=== PATIENT | female | born 1965 | race Caucasian/White ===

== ENCOUNTER 2018-05-04 23:28 | Inpatient (IN) | payer MEDICAID ==
[2018-05-05 03:04] LABS: WHITE BLOOD COUNT 6.3 10^3/ul (4.8-10.8)
[2018-05-05 03:04] LABS: ADD MAN DIFF? NO; BASOPHILS % 0.3 % (0.0-2.0); EOSINOPHILS # 0.1 10^3/ul (0.0-0.5); EOSINOPHILS % 0.9 % (0.0-7.0); HEMATOCRIT 40.2 % (37.0-47.0); LYMPHOCYTES # 1.7 10^3/ul (0.8-2.9); LYMPHOCYTES % 26.9 % (15.0-51.0); MEAN CORPUSCULAR HEMOGLOBIN 31.4 pg (29.0-33.0); MEAN CORPUSCULAR HGB CONC 32.3 g/dl (32.0-37.0); MEAN CORPUSCULAR VOLUME 97.1 fl (82.0-101.0); MEAN PLATELET VOLUME 8.9 fl (7.4-10.4); MONOCYTE # 0.4 10^3/ul (0.3-0.9); MONOCYTES % 6.5 % (0.0-11.0); NEUTROPHIL # 4.1 10^3/ul (1.6-7.5); NEUTROPHILS % 65.2 % (39.0-77.0); PLATELET COUNT 380 10^3/UL (140-415); RED BLOOD COUNT 4.14 10^6/ul (4.20-5.40); RED CELL DISTRIBUTION WIDTH 13.2 % (11.5-14.5)
[2018-05-05 03:09] LABS: ADD UMIC YES; UR ASCORBIC ACID NEGATIVE (NEGATIVE); UR BILIRUBIN (Dip) NEGATIVE (NEGATIVE); UR BLOOD (Dip) 1+ mg/dL (NEGATIVE); UR CLARITY CLEAR (CLEAR); UR COLOR YELLOW (YELLOW); UR GLUCOSE (Dip) NEGATIVE (NEGATIVE); UR KETONES (Dip) NEGATIVE (NEGATIVE); UR LEUKOCYTE ESTERASE (Dip) NEGATIVE Leu/ul (NEGATIVE); UR NITRITE (Dip) NEGATIVE (NEGATIVE); UR RBC 7 /HPF (0-5); UR SPECIFIC GRAVITY (Dip) 1.018 (1.003-1.030); UR TOTAL PROTEIN (Dip) NEGATIVE (NEGATIVE); UR UROBILINOGEN (Dip) 1+ mg/dL (NEGATIVE); UR WBC 0 /HPF (0-5)
[2018-05-05] MEDS: morphine 4 MG/ML VIAL IV (03:17)
[2018-05-05] MEDS: ONDANSETRON 4 MG INJ IV (03:17)
[2018-05-05 03:30] LABS: ALANINE AMINOTRANSFERASE 865 IU/L (13-69); ALBUMIN 4.7 g/dl (3.3-4.9); ALBUMIN/GLOBULIN RATIO 1.09; ALKALINE PHOSPHATASE 228 IU/L (42-121); ANION GAP 11 (5-13); BILIRUBIN,INDIRECT 1.3 mg/dl (0-1.1); BILIRUBIN,TOTAL 1.5 mg/dl (0.2-1.3); BLOOD UREA NITROGEN 16 mg/dl (7-20); CALCIUM 9.8 mg/dl (8.4-10.2); CARBON DIOXIDE 29 mmol/L (21-31); CHLORIDE 104 mmol/L (97-110); Estimated GFR > 60 mL/min (>60); GLUCOSE 112 mg/dl (70-220); LIPASE 181 U/L (23-300); POTASSIUM 3.7 mmol/L (3.5-5.1); SODIUM 144 mmol/L (135-144)
[2018-05-05 03:58] LABS: ASPARTATE AMINO TRANSFERASE 858 IU/L (15-46)
[2018-05-05] MEDS ORDERED: ACETAMINOPHEN 325 MG TAB PO (05:30)
[2018-05-05] MEDS ORDERED: ONDANSETRON 4 MG INJ IV ×2 (05:30→07:30)
[2018-05-05] MEDS: PIPER-TAZO 3.375 GM IV (PMX) 100 ML IVPB (06:04)
[2018-05-05] MEDS ORDERED: NACL 0.9% 3 ML SYG IV (07:30)
[2018-05-05] MEDS: DEXTROSE 5%-0.45% NACL 1,000 ML IV ×2 (07:37→23:18)
[2018-05-05 08:42] LABS: HEPATITIS B SURFACE ANTIGEN NEGATIVE (NEGATIVE)
[2018-05-05 09:00] LABS: HEPATITIS C VIRAL ANTIBODY NEGATIVE (NEGATIVE)
[2018-05-05 09:00] LABS: HEPATITIS B SURFACE ANTIBODY NEGATIVE (NEGATIVE)
[2018-05-05] MEDS: FAMOTIDINE 20 MG INJ IV ×2 (09:26→23:16)
[2018-05-06] MEDS: DEXTROSE 5%-0.45% NACL 1,000 ML IV ×2 (03:12→09:13)
[2018-05-06 05:37] LABS: ADD MAN DIFF? NO
[2018-05-06 05:45] LABS: WHITE BLOOD COUNT 5.1 10^3/ul (4.8-10.8)
[2018-05-06 05:45] LABS: BASOPHILS % 0.6 % (0.0-2.0); EOSINOPHILS # 0.2 10^3/ul (0.0-0.5); EOSINOPHILS % 3.5 % (0.0-7.0); HEMATOCRIT 35.5 % (37.0-47.0); HEMOGLOBIN 11.7 g/dl (12.0-16.0); LYMPHOCYTES # 2.1 10^3/ul (0.8-2.9); LYMPHOCYTES % 40.5 % (15.0-51.0); MEAN CORPUSCULAR HEMOGLOBIN 32.1 pg (29.0-33.0); MEAN CORPUSCULAR VOLUME 97.3 fl (82.0-101.0); MEAN PLATELET VOLUME 9.2 fl (7.4-10.4); MONOCYTE # 0.5 10^3/ul (0.3-0.9); MONOCYTES % 9.9 % (0.0-11.0); NEUTROPHIL # 2.3 10^3/ul (1.6-7.5); NEUTROPHILS % 45.3 % (39.0-77.0); PLATELET COUNT 332 10^3/UL (140-415); RED BLOOD COUNT 3.65 10^6/ul (4.20-5.40); RED CELL DISTRIBUTION WIDTH 13.4 % (11.5-14.5)
[2018-05-06 06:03] LABS: ALANINE AMINOTRANSFERASE 529 IU/L (13-69); ALBUMIN 3.8 g/dl (3.3-4.9); ALBUMIN/GLOBULIN RATIO 1.02; ALKALINE PHOSPHATASE 176 IU/L (42-121); ANION GAP 9 (5-13); ASPARTATE AMINO TRANSFERASE 267 IU/L (15-46); BILIRUBIN,INDIRECT 1.2 mg/dl (0-1.1); BILIRUBIN,TOTAL 1.2 mg/dl (0.2-1.3); BLOOD UREA NITROGEN 14 mg/dl (7-20); CALCIUM 9.2 mg/dl (8.4-10.2); CARBON DIOXIDE 28 mmol/L (21-31); CHLORIDE 105 mmol/L (97-110); Estimated GFR > 60 mL/min (>60); GLUCOSE 109 mg/dl (70-220); POTASSIUM 3.4 mmol/L (3.5-5.1); SODIUM 142 mmol/L (135-144); TOTAL PROTEIN 7.5 g/dl (6.1-8.1)
[2018-05-06] MEDS: FAMOTIDINE 20 MG INJ IV ×2 (09:13→22:19)
[2018-05-06] MEDS: POTASSIUM CHLORIDE (SR) 20 MEQ TAB PO (17:25)
[2018-05-06] MEDS: PIPER-TAZO 3.375 GM IV (PMX) 100 ML IVPB ×2 (17:25→22:18)
[2018-05-06] MEDS: D5-NS + KCL 20 MEQ 1,000 ML IV (17:26)
[2018-05-07] MEDS: D5-NS + KCL 20 MEQ 1,000 ML IV ×3 (04:47→20:43)
[2018-05-07 05:14] LABS: ADD MAN DIFF? NO
[2018-05-07 05:15] LABS: BASOPHILS % 0.3 % (0.0-2.0); EOSINOPHILS # 0.1 10^3/ul (0.0-0.5); EOSINOPHILS % 2.2 % (0.0-7.0); HEMATOCRIT 34.8 % (37.0-47.0); HEMOGLOBIN 11.3 g/dl (12.0-16.0); LYMPHOCYTES # 2.1 10^3/ul (0.8-2.9); LYMPHOCYTES % 32.1 % (15.0-51.0); MEAN CORPUSCULAR HEMOGLOBIN 31.9 pg (29.0-33.0); MEAN CORPUSCULAR HGB CONC 32.5 g/dl (32.0-37.0); MEAN CORPUSCULAR VOLUME 98.3 fl (82.0-101.0); MEAN PLATELET VOLUME 9.2 fl (7.4-10.4); MONOCYTE # 0.5 10^3/ul (0.3-0.9); MONOCYTES % 7.9 % (0.0-11.0); NEUTROPHIL # 3.7 10^3/ul (1.6-7.5); NEUTROPHILS % 57.2 % (39.0-77.0); PLATELET COUNT 328 10^3/UL (140-415); RED BLOOD COUNT 3.54 10^6/ul (4.20-5.40); RED CELL DISTRIBUTION WIDTH 13.5 % (11.5-14.5)
[2018-05-07 05:15] LABS: WHITE BLOOD COUNT 6.5 10^3/ul (4.8-10.8)
[2018-05-07] MEDS: PIPER-TAZO 3.375 GM IV (PMX) 100 ML IVPB ×3 (05:32→22:34)
[2018-05-07 05:50] LABS: ALANINE AMINOTRANSFERASE 384 IU/L (13-69); ALBUMIN 3.7 g/dl (3.3-4.9); ALBUMIN/GLOBULIN RATIO 1.08; ALKALINE PHOSPHATASE 164 IU/L (42-121); ANION GAP 4 (5-13); ASPARTATE AMINO TRANSFERASE 136 IU/L (15-46); BILIRUBIN,INDIRECT 0.7 mg/dl (0-1.1); BILIRUBIN,TOTAL 0.7 mg/dl (0.2-1.3); BLOOD UREA NITROGEN 14 mg/dl (7-20); CALCIUM 9.3 mg/dl (8.4-10.2); CARBON DIOXIDE 27 mmol/L (21-31); CHLORIDE 111 mmol/L (97-110); CREATININE 0.57 mg/dl (0.44-1.00); Estimated GFR > 60 mL/min (>60); GLUCOSE 96 mg/dl (70-220); POTASSIUM 4.1 mmol/L (3.5-5.1); SODIUM 142 mmol/L (135-144); TOTAL PROTEIN 7.1 g/dl (6.1-8.1)
[2018-05-07] MEDS ORDERED: ROCURONIUM 50 MG INJ (07:00)
[2018-05-07] MEDS ORDERED: GLYCOPYRROLATE 0.4 MG INJ (07:00)
[2018-05-07] MEDS ORDERED: DESFLURANE 15 MIN (07:00)
[2018-05-07] MEDS ORDERED: NEOSTIGMINE 3 MG/3 ML SYRINGE (07:00)
[2018-05-07] MEDS: FAMOTIDINE 20 MG INJ IV ×2 (09:33→20:39)
[2018-05-07] MEDS ORDERED: LIDOCAINE 1%/EPI 30 ML INJ (11:43)
[2018-05-07] MEDS ORDERED: BUPIVACAINE 0.25% (MPF) 30 ML INJ (11:43)
[2018-05-07] MEDS ORDERED: SOD CHLORIDE 0.9% 1,000 ML (11:48)
[2018-05-07] MEDS ORDERED: MIDAZOLAM 1 MG/ML 2 ML INJ (11:48)
[2018-05-07] MEDS ORDERED: METOCLOPRAMIDE 10 MG INJ (11:49)
[2018-05-07] MEDS ORDERED: KETOROLAC 30 MG INJ (12:15)
[2018-05-07] MEDS ORDERED: ROPIVACAINE 0.5 % 30 ML VIAL (12:15)
[2018-05-07] MEDS ORDERED: CEFAZOLIN 1 GM INJ (12:15)
[2018-05-07 12:27] LABS: MITOCHONDRIAL TB NEGATIVE (NEGATIVE); SMOOTH MUSCLE AB SCREEN NEGATIVE (NEGATIVE)
[2018-05-07] MEDS ORDERED: INDIGOTINDISULFONATE 0.8% 5 ML INJ (12:39)
[2018-05-07] MEDS ORDERED: ACETAMINOPHEN 500 MG TAB PO (14:00)
[2018-05-07] MEDS ORDERED: HYDROmorphONE 1 MG/5 ML IV SYRINGE IV ×3 (14:09→14:30)
[2018-05-07] MEDS ORDERED: MEPERIDINE 25 MG INJ IV (14:30)
[2018-05-07] MEDS ORDERED: ONDANSETRON 4 MG INJ IV (14:30)
[2018-05-07] MEDS ORDERED: KETOROLAC 30 MG INJ IV (14:30)
[2018-05-07] MEDS ORDERED: DIPHENHYDRAMINE 50 MG INJ IV (14:30)
[2018-05-07] MEDS: HYDROmorphONE 1 MG/5 ML IV SYRINGE IV (14:39)
[2018-05-07] MEDS ORDERED: morphine 4 MG/ML VIAL (15:14)
[2018-05-07] MEDS: morphine 2 MG INJ IV (15:17)
[2018-05-07 18:37] LABS: ANA SCREEN POSITIVE (NEGATIVE)
[2018-05-07 20:07] LABS: ANA PATTERN NUCLEOLAR; ANA TITER 1:40 titer
[2018-05-08] MEDS: HYDROCODONE/APAP (5/325) TAB PO (00:01)
[2018-05-08 05:39] LABS: ADD MAN DIFF? NO
[2018-05-08 05:46] LABS: WHITE BLOOD COUNT 6.6 10^3/ul (4.8-10.8)
[2018-05-08 05:46] LABS: BASOPHILS % 0.2 % (0.0-2.0); EOSINOPHILS % 0.6 % (0.0-7.0); HEMATOCRIT 32.4 % (37.0-47.0); HEMOGLOBIN 10.7 g/dl (12.0-16.0); LYMPHOCYTES # 2.2 10^3/ul (0.8-2.9); LYMPHOCYTES % 33.5 % (15.0-51.0); MEAN PLATELET VOLUME 9.1 fl (7.4-10.4); MONOCYTE # 0.6 10^3/ul (0.3-0.9); MONOCYTES % 8.7 % (0.0-11.0); NEUTROPHIL # 3.8 10^3/ul (1.6-7.5); NEUTROPHILS % 56.8 % (39.0-77.0); PLATELET COUNT 329 10^3/UL (140-415); RED BLOOD COUNT 3.34 10^6/ul (4.20-5.40); RED CELL DISTRIBUTION WIDTH 13.6 % (11.5-14.5)
[2018-05-08] MEDS: PIPER-TAZO 3.375 GM IV (PMX) 100 ML IVPB ×2 (06:00→14:17)
[2018-05-08] MEDS: morphine LIQ (10 MG/5 ML) CUP PO (06:00)
[2018-05-08 06:24] LABS: ALANINE AMINOTRANSFERASE 367 IU/L (13-69); ALBUMIN 3.3 g/dl (3.3-4.9); ALKALINE PHOSPHATASE 213 IU/L (42-121); ANION GAP 3 (5-13); ASPARTATE AMINO TRANSFERASE 191 IU/L (15-46); BILIRUBIN,INDIRECT 0.9 mg/dl (0-1.1); BILIRUBIN,TOTAL 0.9 mg/dl (0.2-1.3); BLOOD UREA NITROGEN 7 mg/dl (7-20); CARBON DIOXIDE 27 mmol/L (21-31); CHLORIDE 110 mmol/L (97-110); CREATININE 0.56 mg/dl (0.44-1.00); Estimated GFR > 60 mL/min (>60); GLUCOSE 109 mg/dl (70-220); POTASSIUM 3.9 mmol/L (3.5-5.1); SODIUM 140 mmol/L (135-144); TOTAL PROTEIN 6.3 g/dl (6.1-8.1)
[2018-05-08] MEDS: D5-NS + KCL 20 MEQ 1,000 ML IV (08:20)
[2018-05-08] MEDS: FAMOTIDINE 20 MG TAB PO (08:20)
== END 2018-05-08 16:30 | disposition home or self-care (01) | DRG 419 ==
LOC: E/R 23:28 → MS1 05-05 05:23
PROC: 0FT44ZZ Resection of Gallbladder, Percutaneous Endoscopic Approach (ICD-10-PCS; principal; 2018-05-07 12:00)
PROC: 0FB04ZX Excision of Liver, Percutaneous Endoscopic Approach, Diagnostic (ICD-10-PCS; 2018-05-07 12:00)
DX: K80.00 Calculus of gallbladder with acute cholecystitis without obstruction (principal); E80.6 Other disorders of bilirubin metabolism; K76.9 Liver disease, unspecified
CPT/HCPCS: 36415; 74181; 76705; 78226; 80053; 81001; 83690; 83735; 84100; 84703; 85025; 86038; 86255; 86706; 86803; 87340; 88304; 88307; 88313; 90686; 96374; 96375; 99285-25